=== PATIENT | female | born 1995 | race Caucasian/White ===

== ENCOUNTER 2017-09-06 11:12 | Emergency (ER) | payer OTHER ==
--- NOTE | 2017-09-06 11:46 | UC ---
Eye Complaint HPI - HPI Summary HPI Summary: Patient presents with complaints of non-traumatic right eye redness and swelling x 1 days. She states it feels slightly wam and tender to touch. She does wear contact lenses. Denies any eye pain, change in vision, drainage associated with her concerns today. She states no foreign body sensation of eye or vesicles of skin. - History of Current Complaint Chief Complaint: UCEye Stated Complaint: PINK EYE Time Seen by Provider: 09/06/17 11:25 Hx Obtained From: Patient Hx Last Menstrual Period: 08/23/17 Onset/Duration: Gradual Onset, Lasting Hours Timing: Constant Severity Initially: Mild Severity Currently: Moderate Character: Dull Aggravating Factor(s): Other - touch Alleviating Factor(s): Nothing Associated Signs And Symptoms: Positive: Drainage (Clear), Swelling - Risk Factors Penetrating Injury Risk Factor: Negative Globe Rupture Risk Factors: Negative Acute Glaucoma Risk Factors: Negative Optic Artery Occlusion Risk Factors: Negative - Allergies/Home Medications Allergies/Adverse Reactions: Allergies Allergy/AdvReac Type Severity Reaction Status Date / Time No Known Allergies Allergy Verified 09/06/17 11:25 Home Medications: Home Medications Drospirenone-Ethinyl Estradiol [Loryna 3-0.02 mg] 1 tab PO DAILY 09/06/17 [ History Confirmed 09/06/17] PMH/Surg Hx/FS Hx/Imm Hx Previously Healthy: Yes - Surgical History Surgical History: None - Family History Known Family History: Positive: None - Social History Occupation: Student Lives: Alone Alcohol Use: Weekly Substance Use Type: None Smoking Status (MU): Never Smoked Tobacco - Immunization History Most Recent Influenza Vaccination: Not UDT Review of Systems Constitutional: Negative Skin: Negative Eyes: Drainage, Eye Redness, Other - redness and swellingbelow the eye. ENT: Negative Respiratory: Negative Cardiovascular: Negative Gastrointestinal: Negative Genitourinary: Negative Motor: Negative Neurovascular: Negative Musculoskeletal: Negative Neurological: Negative Psychological: Negative All Other Systems Reviewed And Are Negative: Yes Physical Exam Triage Information Reviewed: Yes Vital Signs: Initial Vital Signs Temp 98.2 F 09/06/17 11:22 Pulse 81 09/06/17 11:22 Resp 16 09/06/17 11:22 BP 119/70 09/06/17 11:22 Pulse Ox 100 09/06/17 11:22 Eyes: Positive: Other: - soft tissue swelling, and redness below the right eye outter aspect. conjunctiva clear, slcera without injection. eom intact. visual acutiy reported unchanged. no vesislces noted on skin. ENT Exam: Normal Dental Exam: Normal Neck exam: Normal Neck: Positive: 1 Respiratory Exam: Normal Cardiovascular Exam: Normal Abdominal Exam: Normal Musculoskeletal Exam: Normal Neurological Exam: Normal Psychological Exam: Normal Skin Exam: Normal Eye Complaint Course/Dx - Course Course Of Treatment: Patient presents with clinical findings consistent with superficial maximus-orbital cellulitis. Was RX keflex 500 mg by mouth four times dialy x 10 days, and erythromycin opth ointment tid x 7 days. F/U with eye doctor in 2 days, and if symtpoms worsen go directly to the ER. Discussed increased redness, pain, swelling, eye pain or change in vision as factors that warrent ER evalaution. - Differential Dx/Diagnosis Differential Diagnosis/HQI/PQRI: Periorbital Cellulitis Provider Diagnoses: periorbit cellulitis Discharge - Discharge Plan Condition: Stable Disposition: HOME Prescriptions: Cephalexin CAP* [Keflex CAP*] 500 mg PO QID #40 cap Erythromycin OPTH OINT* [Erythromycin 0.5% OPTH OINT*] 1 applic RIGHT EYE TID # 1 ophth.oint Patient Education Materials: Periorbital Cellulitis in Adults (ED) Referrals: Jack Vera MD [Medical Doctor] - Additional Instructions: If your symptoms worsen you need to go directly to the ER.
== END 2017-09-06 11:42 | disposition home or self-care (01) ==
LOC: UCEAST 11:12
DX: L03.213 Periorbital cellulitis (principal)
CPT/HCPCS: 99202; G0463